=== PATIENT | male | born 1980 | race Caucasian/White ===

== ENCOUNTER 2016-11-29 11:30 | Emergency (ER) | payer OTHER ==
[~2016-11-29] VITALS: Ht 190.5 cm; Wt 70.0 kg
[~2016-11-29 11:30] MED LIST: CYCL-36 PO; NAPR500 PO
[2016-11-29 11:33] VITALS: BP 103/62; PULSE 70; RESP 24; TEMP 97.6; O2SAT 97
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
[2016-11-29] MEDS ORDERED: KETOROLAC TROMETHAMINE 60 MG/2 ML (IM) VIAL IM ONE (12:45)
[2016-11-29] MEDS ORDERED: ORPHENADRINE INJ 60 MG/2 ML AMP IM ONE (12:45)
[2016-11-29] MEDS ORDERED: IBUP800T23 PO (12:47)
[2016-11-29] MEDS ORDERED: CYCL1TAB29 PO (12:47)
--- NOTE | 2016-11-29 12:49 | PD ---
HPI Chief Complaint: Back/ Neck Pain or Injury Time Seen by Provider: 12:45 Travel History International Travel<30 days: No Contact w/Intl Traveler<30days: No Traveled to known affect area: No History of Present Illness HPI 36-year-old male presents emergency Department with complaint of bilateral thoracic back pain that has been going on for the last 4 years. He has history of chronic back pain. He does heavy lifting at work and his back pain is consistent. He denies paresthesias, loss of sensation, decreased range of motion, decreased strength to all extremity. Denies fever, chills, nausea, vomiting. Denies abdominal pain, change in urine or stool. Denies IV drug use. Denies cancer. Pain is worse on certain movements, and standing up. He has tried heating pad and [id number] medications with no relief of pain. He has an appointment with pain management approximately 2-1/2 weeks. No known allergies. No other modifying factors or associated signs and symptoms. PFSH Past Medical History Hx Anticoagulant Therapy: No Cardiovascular Problems: No Chemotherapy: No Cerebrovascular Accident: No Diabetes: No Respiratory: No Social History Alcohol Use: No Tobacco Use: No Substance Use: No Allergies-Medications (Allergen,Severity, Reaction): Coded Allergies: No Known Allergies (Unverified , 06/04/15) Reported Meds & Prescriptions Reported Meds & Active Scripts Active Flexeril (Cyclobenzaprine HCl) 10 Mg Tab 10 Mg PO TID PRN Ibuprofen 800 Mg Tab 800 Mg PO Q6HR PRN Flexeril (Cyclobenzaprine HCl) 10 Mg Tab 10 Mg PO TID PRN Do not drive on medication. Do not take with alcohol. Naprosyn (Naproxen) 500 Mg Tab 500 Mg PO BID PRN Review of Systems Except as stated in HPI: all other systems reviewed are Neg Physical Exam Narrative GENERAL: Well-nourished, well-developed male patient, in no acute distress; afebrile, nontoxic-appearing SKIN: Warm and dry. HEAD: Atraumatic. Normocephalic. EYES: Pupils equal and round. No scleral icterus. No injection or drainage. ENT: Mucosa pink and moist. Airway patent. NECK: Trachea midline. CARDIOVASCULAR: Regular rate and rhythm. No murmur appreciated. RESPIRATORY: No accessory muscle use. Breath sounds clear and equal bilaterally. No retractions or kidney. GASTROINTESTINAL: Abdomen soft, non-tender, nondistended. Positive bowel sounds. No hepato-splenomegaly, or palpable masses. No guarding. MUSCULOSKELETAL: Bilateral lower extremities supple and non-tense with 2+ pedal pulses and sensory intact; with full range of motion and 5/5 strength. 2 + DTRs bilaterally. Active dorsiflexion and extension of bilateral feet. Bilateral straight leg raise is positive for back pain. Ambulatory with normal gait in room. Sitting up in bed at 90. No obvious deformities. No clubbing. No cyanosis. No edema. BACK: No midline point tenderness on palpation of the lumbar, thoracic spine. Tenderness on palpation of bilateral paraspinal musculature of the thoracic spine. No obvious deformities. NEUROLOGICAL: Awake and alert. Oriented 3. No obvious cranial nerve deficits. Motor grossly within normal limits. Normal speech. Moves all extremities. 5/5 strength to all extremities. Sensory intact. PSYCHIATRIC: Appropriate mood and affect; insight and judgment normal. Data Data Last Documented VS Vital Signs Date Time Temp Pulse Resp B/P Pulse Ox O2 Delivery O2 Flow Rate FiO2 11/29/16 11:33 97.6 70 24 103/62 97 Room Air Orders Ketorolac Inj (Toradol Inj) (11/29/16 12:45) Orphenadrine Inj (Norflex Inj) (11/29/16 12:45) MDM Medical Decision Making Medical Screen Exam Complete: Yes Emergency Medical Condition: Yes Medical Record Reviewed: Yes Differential Diagnosis Chronic back pain, thoracic back pain, thoracic back strain, muscle spasms Narrative Course 36-year-old male with chronic thoracic back pain with complaint of continued back pain 4 years. He has been pain management appointment in approximately 2 and half weeks. He has no midline point tenderness on palpation of the thoracic spine. He is ambulatory with normal gait in the room. Denies encopresis, incontinence, saddle anesthesias. Denies IV drug use, cancer. Denies fever, chills, nausea, vomiting. Norflex and Toradol administered in the ER. Ibuprofen and Robaxin prescribed for home. Patient verbalizes understanding and agreement with treatment plan. Patient is medically cleared and stable for discharge. Discussed reasons to return to the emergency department. Instructed patient to follow up with primary care provider. Patient agrees with treatment plan. The patients vital signs are stable and the patient is stable for outpatient follow-up and treatment. Patient discharged home, stable and in no acute distress. Diagnosis Primary Impression: Chronic thoracic back pain Qualified Code: M54.6 - Chronic thoracic back pain, unspecified back pain laterality Referrals: Primary Care Physician Patient Instructions: Back Pain (ED), General Instructions Departure Forms: Tests/Procedures, Work Release Enter return to work date: Dec 03, 2016 Additional Instructions: Tylenol or ibuprofen as directed and as needed for pain Flexeril as prescribed and as needed for muscle spasms Heating pad and/or ice to affected area to reduce pain Avoid aggravating activities; increase activity as tolerated Follow-up with primary care provider Return to emergency department immediately with worsening of symptoms Med/Other Pt SpecificInfo: Prescription(s) given Scripts Cyclobenzaprine (Flexeril)10 Mg Tab10 Mg PO TID PRN (MUSCLE SPASM) #30 TAB Ref 0 Prov:Mary Lewis 11/29/16 Ibuprofen 800 Mg [id number] Mg PO Q6HR PRN (PAIN) #30 TAB Ref 0 Prov:Mary Lewis 11/29/16 Disposition: 01 DISCHARGE HOME Condition: Stable Mary Lewis Nov 29, 2016 12:49
== END 2016-11-29 13:27 | disposition home or self-care (01) ==
LOC: NEPB 11:30
DX: M54.6 Pain in thoracic spine (principal)
CPT/HCPCS: 96372; 99283; J1885; J2360

== ENCOUNTER 2017-02-24 17:16 | Emergency (ER) | payer SELFPAY ==
[~2017-02-24 17:16] MED LIST changes: +CYCL1TAB29 PO; +IBUP800T23 PO
[2017-02-24 17:18] VITALS: BP 130/77; PULSE 84; RESP 17; TEMP 98.2; O2SAT 98
--- NOTE | 2017-02-24 18:06 | RADRPT ---
EXAM DATE/TIME: 02/24/2017 17:56 [facility] COMPARISON: CT BRAIN W/O CONTRAST, June 04, 2015, 13:26. INDICATIONS : Passed out left arm numbness. RADIATION DOSE: 34.94 CTDIvol (mGy) MEDICAL HISTORY : THC use and xanax SURGICAL HISTORY : None. ENCOUNTER: Initial ACUITY: 1 day PAIN SCALE: 0/10 LOCATION: cranial TECHNIQUE: Multiple contiguous axial images were obtained of the head. Using automated exposure control and adj ustment of the mA and/or kV according to patient size, radiation dose was kept as low as reasonably a chievable to obtain optimal diagnostic quality images. DICOM format image data is available electro nically for review and comparison. FINDINGS: CEREBRUM: The ventricles are normal for age. No evidence of midline shift, mass lesion, hemorrhage or acute in farction. No extra-axial fluid collections are seen. POSTERIOR FOSSA: The cerebellum and brainstem are intact. The 4th ventricle is midline. The cerebellopontine angle i s unremarkable. EXTRACRANIAL: The visualized portion of the orbits is intact. Mild mucosal thickening is noted involving the ethmoi d air cells bilaterally. SKULL: The calvaria is intact. No evidence of skull fracture. CONCLUSION: No acute intracranial abnormality. Mild mucosal thickening involving the ethmoid air cells bilaterally. Tyler Agarwal MD on February 24, 2017 at 18:03 Board Certified Radiologist. This report was verified electronically.
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
--- NOTE | 2017-02-24 18:20 | RADRPT ---
EXAM DATE/TIME: 02/24/2017 17:56 [facility] COMPARISON: No previous studies available for comparison. INDICATIONS : Passed out has left arm numbness. RADIATION DOSE: 18.88 CTDIvol (mGy) MEDICAL HISTORY : THC and Xanax use. SURGICAL HISTORY : None. ENCOUNTER: Initial ACUITY: 1 day PAIN SCALE: 0/10 LOCATION: Bilateral neck TECHNIQUE: Volumetric scanning of the cervical spine was performed. Multiplanar reconstructions in the sagittal, coronal and oblique axial planes were performed. Using automated exposure control and adjustment o f the mA and/or kV according to patient size, radiation dose was kept as low as reasonably achievable to obtain optimal diagnostic quality images. DICOM format image data is available electronically f or review and comparison. FINDINGS: There is no acute fracture or prevertebral soft-tissue swelling. Mild cervical spondylosis is noted at C2-C3 and to a lesser extent at C3-C4. The bony relationship and alignment between C1 and C2 is w ell maintained. No spinal stenosis is noted. Mild right neural foraminal narrowing is noted at C3-C 4. CONCLUSION: 1. No acute fracture or prevertebral soft-tissue swelling. 2. Mild right neural foraminal narrowing at C3-C4. 3. Mild cervical spondylosis at C2-C3 and C3-C4. Tyler Agarwal MD on February 24, 2017 at 18:11 Board Certified Radiologist. This report was verified electronically.
[2017-02-24] MEDS ORDERED: NAPR500 PO (18:42)
--- NOTE | 2017-02-24 18:42 | PD ---
Data Data Last Documented VS Vital Signs Date Time Temp Pulse Resp B/P Pulse Ox O2 Delivery O2 Flow Rate FiO2 02/24/17 17:40 15 98 Room Air 02/24/17 17:18 98.2 84 130/[address] Brain W/O Iv Contrast(Rout) (02/24/17 ) Ct Cerv Spine W/O Contrast (02/24/17 ) Support Splint (02/24/17 18:38) MDM Supervised Visit with JIA: No Diagnosis Primary Impression: Acute radial nerve palsy of left upper extremity Referrals: Ethan Iglesias MD 1 week Patient Instructions: General Instructions Additional Instruction: Take Naprosyn as needed for pain. Use splint as needed for comfort. Follow-up with your primary physician for further evaluation. This normally improves in 3-4 months. Return to the emergency department for any new or worsening symptoms. Scripts Naproxen (Naprosyn)500 Mg [id number] Mg PO BID PRN (PAIN SCALE 1 TO 10) #20 TAB Prov:Sea Gonsalez MD 02/24/17 Disposition: 01 DISCHARGE HOME Condition: Stable Sea Gonsalez MD Feb 24, 2017 18:42
== END 2017-02-24 19:12 | disposition home or self-care (01) ==
LOC: NEPD 17:16
DX: G56.32 Lesion of radial nerve, left upper limb (principal); Z72.0 Tobacco use
CPT/HCPCS: 70450; 72125; 99285; L3908

== ENCOUNTER 2017-08-25 14:53 | Emergency (ER) | payer OTHER ==
[~2017-08-25 14:53] MED LIST changes: +CYCL10TA PO; -CYCL1TAB29 PO; +IBUP1TAB7 PO; -IBUP800T23 PO
[2017-08-25 14:59] VITALS: BP 140/78; PULSE 67; RESP 20; TEMP 99.2; O2SAT 97
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
== END 2017-08-25 15:58 | disposition home or self-care (01) ==
LOC: NEPD 14:53
DX: Z00.00 Encounter for general adult medical examination without abnormal findings (principal)
CPT/HCPCS: 99281

== ENCOUNTER 2017-09-04 15:42 | Emergency (ER) | payer SELFPAY ==
[~2017-09-04] VITALS: Ht 190.5 cm; Wt 70.5 kg
[2017-09-04 15:44] VITALS: BP 109/57; PULSE 76; RESP 16; TEMP 99.1; O2SAT 97
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
[2017-09-04 16:36] LABS: BASOPHIL # 0.1 TH/MM3 (0-0.2); BASOPHIL % 0.5 % (0.0-2.0); HEMATOCRIT 42.6 % (39.0-51.0); HEMOGLOBIN 14.6 GM/DL (13.0-17.0); LYMPH % 9.7 % (9.0-44.0); LYMPHOCYTE # 1.1 TH/MM3 (1.0-4.8); MEAN CELL VOLUME 85.8 FL (80.0-100.0); MEAN CORPUSCULAR HEMOGLOBIN 29.3 PG (27.0-34.0); MEAN CORPUSCULAR HGB CONC 34.2 % (32.0-36.0); MEAN PLATELET VOLUME 8.8 FL (7.0-11.0); MONO % 12.1 % (0.0-8.0); MONOCYTE # 1.4 TH/MM3 (0-0.9); NEUT % 77.7 % (16.0-70.0); PLATELET COUNT 212 TH/MM3 (150-450); RED BLOOD COUNT 4.97 MIL/MM3 (4.50-5.90); RED CELL DISTRIBUTION WIDTH 13.3 % (11.6-17.2); WHITE BLOOD COUNT 11.6 TH/MM3 (4.0-11.0)
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
[2017-09-04 16:48] LABS: INTERNATIONAL NORMALIZED RATIO 1.2 RATIO; PROTHROMBIN TIME - PATIENT 12.4 SEC (9.8-11.6)
[2017-09-04 17:04] LABS: ALBUMIN 3.9 GM/DL (3.4-5.0); BLOOD UREA NITROGEN 16 MG/DL (7-18); CALCIUM 8.6 MG/DL (8.5-10.1); CREATININE 1.01 MG/DL (0.60-1.30); GLOMERULAR FILTRATION RATE 84 ML/MIN (>89); GLUCOSE,RANDOM 134 MG/DL (74-106)
[2017-09-04 17:05] LABS: ALT (GPT) 23 U/L (12-78); AST (GOT) 14 U/L (15-37); BICARBONATE 26.8 MEQ/L (21.0-32.0)
[2017-09-04 17:17] LABS: CHLORIDE 100 MEQ/L (98-107); SODIUM (NA) 132 MEQ/L (136-145)
[2017-09-04 17:42] LABS: ALKALINE PHOSPHATASE 79 U/L (45-117); TOTAL BILIRUBIN ADULT 0.9 MG/DL (0.2-1.0); TOTAL PROTEIN 7.5 GM/DL (6.4-8.2)
--- NOTE | 2017-09-04 17:57 | PD ---
HPI Chief Complaint: Syncope/Near-Syncope Time Seen by Provider: 17:54 Travel History International Travel<30 days: No Contact w/Intl Traveler<30days: No Traveled to known affect area: No History of Present Illness HPI This is a 36-year-old male who presents to the emergency department having had a syncopal episode 3 days ago where he fell and hit his head. He said he was sitting on a bench smoking and he went to stand up and then he started to feel lightheaded and passed out. This is never happened to him before. He said he felt lightheaded in the past but never lost consciousness. He hit his head at the time. He comes in today because he's had a moderate severity throbbing headache all over his head, constant, with no associated vomiting, numbness or weakness. He said he tried to use some heroin to make his headache better but that didn't work. He doesn't use any IV drugs he only snorts. PFSH Past Medical History Hx Anticoagulant Therapy: No Cardiovascular Problems: No Chemotherapy: No Cerebrovascular Accident: No Diabetes: No Respiratory: No Past Surgical History Other Surgery: Yes (cyst removed from right arm) Social History Alcohol Use: Yes Tobacco Use: Yes (1 ppd) Substance Use: Yes (THC, XANAX, herroin, cocaine) Allergies-Medications (Allergen,Severity, Reaction): Coded Allergies: No Known Allergies (Unverified Adverse Reaction, Unknown, 08/25/17) Reported Meds & Prescriptions Reported Meds & Active Scripts Active No Active Prescriptions or Reported Medications Review of Systems Except as stated in HPI: all other systems reviewed are Neg Physical Exam Narrative GENERAL:Well appearing, no acute distress SKIN: Focused skin assessment warm and dry. HEAD: Atraumatic. Normocephalic. EYES: Pupils equal and round. No injection or drainage. ENT: Moist mucous membranes NECK: Trachea midline. CARDIOVASCULAR: Regular rate and rhythm. No murmur appreciated. RESPIRATORY: Clear to auscultation. Breath sounds equal bilaterally. GASTROINTESTINAL: Abdomen soft, non-tender, nondistended. MUSCULOSKELETAL: No obvious deformities. NEUROLOGICAL: Awake and alert. No obvious cranial nerve deficits. Moving all extremities. PSYCHIATRIC: Appropriate mood and affect; insight and judgment normal. Data Data Last Documented VS Vital Signs Date Time Temp Pulse Resp B/P (MAP) Pulse Ox O2 Delivery O2 Flow Rate FiO2 09/04/17 15:44 99.1 76 16 109/57 (74) 97 Room Air Orders Orders Electrocardiogram (09/04/17 15:48) Complete Blood Count With Diff (09/04/17 15:48) Comprehensive Metabolic Panel (09/04/17 15:48) Magnesium (Mg) (09/04/17 15:48) Ckmb (Isoenzyme) Profile (09/04/17 15:48) Troponin I (09/04/17 15:48) Act Partial Throm Time (Ptt) (09/04/17 15:48) Prothrombin Time / Inr (Pt) (09/04/17 15:48) Ct Brain W/O Iv Contrast(Rout) (09/04/17 15:48) Ct Cerv Spine W/O Contrast (09/04/17 15:48) Electrocardiogram (09/04/17 ) Labs Laboratory Tests Test 09/04/17 16:00 White Blood Count 11.6 TH/MM3 Red Blood Count 4.97 MIL/MM3 Hemoglobin 14.6 GM/DL Hematocrit 42.6 % Mean Corpuscular Volume 85.8 FL Mean Corpuscular Hemoglobin 29.3 PG Mean Corpuscular Hemoglobin Concent 34.2 % Red Cell Distribution Width 13.3 % Platelet Count 212 TH/MM3 Mean Platelet Volume 8.8 FL Neutrophils (%) (Auto) 77.7 % Lymphocytes (%) (Auto) 9.7 % Monocytes (%) (Auto) 12.1 % Eosinophils (%) (Auto) 0.0 % Basophils (%) (Auto) 0.5 % Neutrophils # (Auto) 9.0 TH/MM3 Lymphocytes # (Auto) 1.1 TH/MM3 Monocytes # (Auto) 1.4 TH/MM3 Eosinophils # (Auto) 0.0 TH/MM3 Basophils # (Auto) 0.1 TH/MM3 CBC Comment DIFF FINAL Differential Comment Prothrombin Time 12.4 SEC Prothromb Time International Ratio 1.2 RATIO Activated Partial Thromboplast Time 32.2 SEC Blood Urea Nitrogen 16 MG/DL Creatinine 1.01 MG/DL Random Glucose 134 MG/DL Total Protein 7.5 GM/DL Albumin 3.9 GM/DL Calcium Level 8.6 MG/DL Magnesium Level 2.0 MG/DL Alkaline Phosphatase 79 U/L Aspartate Amino Transf (AST/SGOT) 14 U/L Alanine Aminotransferase (ALT/SGPT) 23 U/L Total Bilirubin 0.9 MG/DL Sodium Level 132 MEQ/L Potassium Level 4.1 MEQ/L Chloride Level 100 MEQ/L Carbon Dioxide Level 26.8 MEQ/L Anion Gap 5 MEQ/L Estimat Glomerular Filtration Rate 84 ML/MIN Total Creatine Kinase 88 U/L Troponin I LESS THAN 0.02 NG/ML MDM Medical Decision Making Medical Screen Exam Complete: Yes Emergency Medical Condition: Yes Interpretation(s) EKG: Normal sinus rhythm, no ST changes Mild leukocytosis 77% neutrophils Mild hyponatremia Troponin is normal Last [address] 09/04/17 1548 Signed Impressions: Service Date/Time: Monday, September 04, 2017 16:18 - CONCLUSION: No acute disease. Tyler Agarwal MD Cervical Spine CT 09/04/17 1548 Signed Impressions: Service Date/Time: Monday, September 04, 2017 16:18 - CONCLUSION: Negative for fracture. If the Patient has radicular symptoms MRI would be of benefit. Shelton Zamora MD FACR Differential Diagnosis Subdural hematoma, subarachnoid hemorrhage, concussion, arrhythmia, electrolyte abnormality Narrative Course This is a 36-year-old male who is otherwise healthy with the exception of recreational drug use who presents to the emergency department having passed out several days ago hitting his head. He comes in for persistent headache. He was placed on a monitor and an IV was established. EKG demonstrates no evidence of arrhythmia. Labs are all reassuring. CT of the head is unremarkable. I think patient is safe for outpatient evaluation. He will be given resources for [facility] for follow-up. Diagnosis Primary Impression: Closed head injury Qualified Codes: S09.90XA - Unspecified injury of head, initial encounter Additional Impression: Syncope Qualified Codes: R55 - Syncope and collapse Patient Instructions: General Instructions Additional Instructions: If you develop severe chest pain, shortness of breath, sweating, lightheadedness , dizziness or difficulty breathing return to the emergency department immediately. Followup with your primary care physician in 2-3 days if your symptoms are not resolved. Med/Other Pt SpecificInfo: No Change to Meds Scripts No Active Prescriptions or Reported Meds Disposition: 01 DISCHARGE HOME Condition: Stable Bambi Palma MD Sep 04, 2017 17:57
[2017-09-04 18:13] LABS: TROPONIN I LESS THAN 0.02 NG/ML (0.02-0.05)
--- NOTE | 2017-09-06 23:39 | EKG ---
Date Performed: 09/04/2017 Time Performed: 17:56:38 PTAGE: 36 years EKG: Sinus rhythm POSSIBLE RIGHT VENTRICULAR CONDUCTION DELAY BORDERLINE ECG NO PREVIOUS TRACING DOCTOR: Marilyn Rosado Interpretating Date/Time 09/06/2017 23:38:44
--- NOTE | 2017-09-06 23:46 | EKG ---
Date Performed: 09/04/2017 Time Performed: 16:05:13 PTAGE: 36 years EKG: Sinus rhythm POSSIBLE LEFT ATRIAL ENLARGEMENT INCOMPLETE RIGHT BUNDLE BRANCH BLOCK BORDERLINE ECG PREVIOUS TRACING : 09/04/2017 16.03 DOCTOR: Marilyn Rosado Interpretating Date/Time 09/06/2017 23:45:54
== END 2017-09-04 19:13 | disposition home or self-care (01) ==
LOC: NEPE 15:42
DX: S09.90XA Unspecified injury of head, initial encounter (principal); W01.198A Fall on same level from slipping, tripping and stumbling with subsequent striking against other object, initial encounter; R55 Syncope and collapse; E87.1 Hypo-osmolality and hyponatremia; F17.200 Nicotine dependence, unspecified, uncomplicated; F19.90 Other psychoactive substance use, unspecified, uncomplicated
CPT/HCPCS: 70450; 72125; 80053; 82550; 83735; 84484; 85025; 85610; 85730; 93005; 99285

== ENCOUNTER 2017-11-06 19:42 | Emergency (ER) | payer SELFPAY ==
[~2017-11-06] VITALS: Ht 190.5 cm; Wt 72.7 kg
[2017-11-06 20:02] VITALS: BP 122/71; PULSE 81; RESP 16; TEMP 98.6; O2SAT 98
--- NOTE | 2017-11-06 22:08 | PD ---
HPI Chief Complaint: Back/ Neck Pain or Injury Time Seen by Provider: 20:02 Travel History International Travel<30 days: No Contact w/Intl Traveler<30days: No Traveled to known affect area: No History of Present Illness HPI Pt is a 37-year-old male presented to the emergency department for evaluation of low back pain. Patient denies any injury or trauma. He states he started working 1 week ago at a new job and the pain returned. He denies any numbness or tingling in his extremities, no bladder bowel incontinence, no saddle paresthesia. Patient reports his pain is a 5 out of 10, he reports taking over- the-counter medications with no improvement of his symptoms. Symptom onset was gradual, symptom severity is mild to moderate, there are no alleviating factors. Pain is exacerbated with movement. PFSH Past Medical History Medical History: Denies Significant Hx Hx Anticoagulant Therapy: No Cardiovascular Problems: No Chemotherapy: No Cerebrovascular Accident: No Diabetes: No Respiratory: No Past Surgical History Other Surgery: Yes (cyst removed from right arm) Social History Alcohol Use: Yes Tobacco Use: Yes (1 ppd) Substance Use: Yes (THC, XANAX, herroin, cocaine) Allergies-Medications (Allergen,Severity, Reaction): Coded Allergies: No Known Allergies (Unverified Adverse Reaction, Unknown, 08/25/17) Reported Meds & Prescriptions Reported Meds & Active Scripts Active No Active Prescriptions or Reported Medications Review of Systems Except as stated in HPI: all other systems reviewed are Neg Musculoskeletal: Positive: Myalgias Physical Exam Narrative GENERAL: Well-developed, well-nourished, well-appearing male. Presenting in no acute distress. SKIN: Warm and dry. HEAD: Normocephalic. EYES: No scleral icterus. No injection or drainage. NECK: Supple, trachea midline. No JVD or lymphadenopathy. CARDIOVASCULAR: Regular rate RESPIRATORY: No accessory muscle use. Data Data Last Documented VS Vital Signs Date Time Temp Pulse Resp B/P (MAP) Pulse Ox O2 Delivery O2 Flow Rate FiO2 11/06/17 20:02 98.6 81 16 122/71 (88) 98 MDM Medical Decision Making Medical Screen Exam Complete: Yes Emergency Medical Condition: Yes Interpretation(s) Vital Signs Date Time Temp Pulse Resp B/P (MAP) Pulse Ox O2 Delivery O2 Flow Rate FiO2 11/06/17 20:02 98.6 81 16 122/71 (88) 98 Differential Diagnosis Muscle strain versus muscle spasm versus radiculopathy versus other Narrative Course Patient is a well-appearing 37-year-old male, presenting for evaluation of low back pain. There is no preceding injury or trauma. Patient is ambulatory in triage. Patient's vital signs are stable, patient is awaiting bed placement. Patient was called to be placed in a bed, he was no longer found in the emergency department. Patient left AMA. Diagnosis Primary Impression: Left against medical advice Scripts No Active Prescriptions or Reported Meds Kaycee Erickson Nov 06, 2017 22:08
== END 2017-11-06 22:00 | disposition left against medical advice (07) ==
LOC: NED 19:42
DX: M54.5 Low back pain (principal); F17.210 Nicotine dependence, cigarettes, uncomplicated
CPT/HCPCS: 99281

== ENCOUNTER 2017-12-13 09:49 | Emergency (ER) | payer SELFPAY ==
[~2017-12-13] VITALS: Ht 190.5 cm; Wt 73.0 kg
[2017-12-13 09:58] VITALS: BP 153/66; PULSE 87; RESP 19; TEMP 98.1; O2SAT 96
[2017-12-13] MEDS ORDERED: SODIUM CHLORIDE 0.9% FLUSH 10 ML FLUSH IVF PRN ×2 (10:15→11:15)
--- NOTE | 2017-12-13 10:21 | PD ---
HPI Chief Complaint: Complaint Time Seen by Provider: 10:14 Travel History International Travel<30 days: No Contact w/Intl Traveler<30days: No Traveled to known affect area: No History of Present Illness HPI 37-year-old male presents emergency department with 11 days of dysuria. Patient has noted a small amount of discharge and erythema at the tip of his penis. Patient denies changes in sexual partner admits to monogamy with his fiance for the past 4 years. Patient denies significant abdominal pain, cramps , or flank pain. No fever, nausea or vomiting. Patient denies testicular pain. He was waiting to see if it might go away on its own. He has no known drug allergies. PFSH Past Medical History Medical History: Denies Significant Hx Hx Anticoagulant Therapy: No Cardiovascular Problems: No Chemotherapy: No Cerebrovascular Accident: No Diabetes: No Medical other: Yes (CHRONIC BACK PAIN) Respiratory: No Tetanus Vaccination: Unknown Past Surgical History Other Surgery: Yes (cyst removed from right arm) Social History Alcohol Use: Yes (SELDOM) Tobacco Use: Yes (1 ppd) Substance Use: Yes (THC, XANAX, herroin, cocaine) Allergies-Medications (Allergen,Severity, Reaction): Coded Allergies: No Known Allergies (Unverified Adverse Reaction, Unknown, 12/13/17) Reported Meds & Prescriptions Reported Meds & Active Scripts Active No Active Prescriptions or Reported Medications Review of Systems Except as stated in HPI: all other systems reviewed are Neg General / Constitutional: No: Fever Eyes: No: Visual changes HENT: No: Headaches Cardiovascular: No: Chest Pain or Discomfort Respiratory: No: Shortness of Breath Gastrointestinal: No: Abdominal Pain Genitourinary: Positive: Urgency, Frequency, Dysuria, Discharge, No: Flank Pain Musculoskeletal: No: Pain Skin: No Rash Neurologic: No: Weakness Psychiatric: No: Depression Endocrine: No: Polydipsia Hematologic/Lymphatic: No: Easy Bruising Physical Exam Narrative GENERAL: Patient appears in no obvious distress per SKIN: Warm and dry. Normal color. Normal turgor. Patient has a singular erythematous bump on the phallus consistent with folliculitis. The meatus is somewhat irritated surrounding the urethra, but no signs of herpes or other STDs lesions are noted. HEAD: Atraumatic. Normocephalic. EYES: Pupils equal and round. No scleral icterus. No injection or drainage. ENT: No nasal bleeding or discharge. Mucous membranes pink and moist. Pharynx is clear. Airways patent. NECK: Trachea midline. Supple nontender. CARDIOVASCULAR: Regular rate and rhythm. RESPIRATORY: No accessory muscle use. Clear to auscultation. Breath sounds equal bilaterally. GASTROINTESTINAL: Abdomen soft, non-tender, nondistended. Hepatic and splenic margins not palpable. No CVA tenderness per MUSCULOSKELETAL: Extremities without clubbing, cyanosis, or edema. No obvious deformities. NEUROLOGICAL: Awake and alert. No obvious cranial nerve deficits. Motor grossly within normal limits. Five out of 5 muscle strength in the arms and legs. Normal speech. PSYCHIATRIC: Appropriate mood and affect; insight and judgment normal. Data Data Last Documented VS Vital Signs Date Time Temp Pulse Resp B/P (MAP) Pulse Ox O2 Delivery O2 Flow Rate FiO2 12/13/17 09:58 98.1 87 19 153/66 (95) 96 Orders Orders Urinalysis - C+S If Indicated (12/13/17 10:15) Gc And Chlamydia Pcr (12/13/17 10:15) Sodium Chloride 0.9% Flush (Ns Flush) (12/13/17 10:15) Azithromycin Powd Pack (Zithromax Powd P (12/13/17 11:15) Ceftriaxone Inj (Rocephin Inj) (12/13/17 11:15) Metronidazole (Flagyl) (12/13/17 11:15) Sodium Chloride 0.9% Flush (Ns Flush) (12/13/17 11:15) Lidocaine 1% Inj (50 Ml) (Xylocaine 1% I (12/13/17 11:15) Labs Laboratory Tests Test 12/13/17 10:20 Urine Color YELLOW Urine Turbidity CLEAR Urine pH 5.5 Urine Specific [place] 1.023 Urine Protein TRACE mg/dL Urine Glucose (UA) NEG mg/dL Urine Ketones NEG mg/dL Urine Occult Blood NEG Urine Nitrite NEG Urine Bilirubin NEG Urine Urobilinogen 2.0 MG/DL Urine Leukocyte Esterase NEG Urine RBC 1 /hpf Urine WBC 1 /hpf Urine Calcium Oxalate Crystals FEW /hpf Urine Mucus MOD /lpf Microscopic Urinalysis Comment CULT NOT INDICATED MDM Medical Decision Making Medical Screen Exam Complete: Yes Emergency Medical Condition: Yes Differential Diagnosis UTI. Urethritis. Prostatitis. STD. Narrative Course Urinalysis is obtained. Urine GC and chlamydia is ordered. Urinalysis is negative for obvious infection. Patient is noted to have calcium oxalate crystals which may contribute to his current symptoms. GC chlamydia is pending. Patient is given Rocephin 1000 mg IM, 1000 mg azithromycin p.o., and 1000 mg Flagyl p.o. Recommend patient follow-up with his primary care physician or Dr. Franco if symptoms continue. GC still result pending. Diagnosis Primary Impression: Urethritis, nonspecific Referrals: Cali Franco DO Patient Instructions: Chlamydia (ED), Dysuria (ED), General Instructions, Gonorrhea (ED), Trichomoniasis (ED) Additional Instructions: Urinalysis is negative for obvious infection. Patient is noted to have calcium oxalate crystals which may contribute to his current symptoms. GC chlamydia is pending. Patient is given Rocephin 1000 mg IM, 1000 mg azithromycin p.o., and 1000 mg Flagyl p.o. Recommend patient follow-up with his primary care physician or Dr. Franco if symptoms continue. GC still result pending. Med/Other Pt SpecificInfo: No Meds Exist/No RX given Scripts No Active Prescriptions or Reported Meds Disposition: 01 DISCHARGE HOME Condition: Stable Tejinder Darnell Dec 13, 2017 10:21
[2017-12-13 10:51] LABS: BILIRUBIN, URINE NEG (NEG); BLOOD, URINE NEG (NEG); CALCIUM OXALATE CRYSTALS,URINE FEW /hpf; GLUCOSE,URINE NEG (NEG); KETONE, URINE NEG (NEG); MUCUS URINE MOD /lpf (OCC); NITRITE,URINE NEG (NEG); PH, URINE 5.5 (5.0-8.5); URINE COLOR YELLOW (YELLW/STRAW); URINE LEUKOCYTE ESTERASE NEG (NEG)
[2017-12-13] MEDS ORDERED: AZITHROMYCIN PWD FOR SUSP 1 GM PACKET PO ONE (11:15)
[2017-12-13] MEDS ORDERED: LIDOCAINE HCL 1% 50 ML VIAL XX ONE (11:15)
[2017-12-13] MEDS ORDERED: metroNIDAZOLE 500 MG TAB PO ONE (11:15)
[2017-12-13] MEDS ORDERED: AZITHROMYCIN 250 MG TAB PO STA (12:03)
== END 2017-12-13 12:35 | disposition home or self-care (01) ==
LOC: NEPD 09:49
DX: N34.2 Other urethritis (principal); F17.210 Nicotine dependence, cigarettes, uncomplicated
CPT/HCPCS: 81001; 87491; 87591; 96372; 99283; J0696